=== PATIENT | female | born 1935 | race American Indian/Alaskan Native ===

== ENCOUNTER 2017-03-11 11:12 | Day surgery (SDC) | payer MEDICARE ==
[2017-03-11] MEDS ORDERED: NEOFRIN ONE (11:54)
[2017-03-11] MEDS ORDERED: MYDRIACYL ONE (11:54)
[2017-03-11] MEDS ORDERED: NEOFRIN OS ONE (12:05)
[2017-03-11] MEDS ORDERED: IOPIDINE OS ONE (12:05)
[2017-03-11] MEDS ORDERED: MYDRIACYL OS ONE (12:05)
[2017-03-11 13:10] VITALS: BP 158/80
== END 2017-03-11 11:13 | disposition home or self-care (01) ==
LOC: OR 11:12
PROVIDERS: ATTEND Specialist
DX: E11.36 Type 2 diabetes mellitus with diabetic cataract (principal); H26.492 Other secondary cataract, left eye; Z79.84 Long term (current) use of oral hypoglycemic drugs
CPT/HCPCS: 82962

== ENCOUNTER 2018-10-19 13:22 | Day surgery (SDC) | payer MEDICARE ==
[~2018-10-19 13:22] MED LIST: MARCAINE 0.25% INFILTRATI ONE; SODIUM BICARBONATE IV ONE; XYLOCAINE 2% INFILTRATI ONE
[2018-10-19] MEDS ORDERED: XYLOCAINE 1% 20 mL ONE (13:27)
[2018-10-19] MEDS ORDERED: MARCAINE 0.25% INFILTRATI ONE (13:27)
[2018-10-19 13:59] VITALS: BP 157/76
[2018-10-19] MEDS ORDERED: SODIUM BICARBONATE ONE (14:17)
--- NOTE | 2018-10-19 15:44 | Operative Report ---
Operative Report Operative Report: Date of procedure: 10/19/2018 Pre-operative diagnosis: Temporal arteritis, daily headaches with visual disturbance Post-operative diagnosis: Same Procedure name(s): Left temporal artery biopsy Surgeon: Marcelo Mancilla MD Resident Caregiver: None Anesthesia: Local EBL: Minimal Specimen(s): Left temporal artery Complications: None Findings: Normal-appearing temporal artery biopsies Procedure: With the head turned to the right the left preauricular area was prepped and draped using standard sterile technique. Skin was anesthetized using lidocaine and a vertical incision was made over the previously palpated temporal artery pulsation. The dissection was deepened sharply until the temporal artery was located and mobilized for a centimeter or 2. Proximal and distal ligation was performed along with ligation of the side branch and the vessel in between the 2 ligatures was then excised and sent for pathological assessment. Hemostasis was good. Surgery was blocked with Marcaine and closed in layers using 3-0 Vicryl subcutaneous interrupted 4-0 Monocryl subcuticular. The skin was sealed with Dermabond. Patient was turned to the supine position and then discharged home in stable condition having tolerated the procedure well.
--- NOTE | 2018-10-19 15:48 | Short Stay Summary ---
Short Stay Documentation Date of service: 10/19/18 Narrative H&P: Patient admitted to the minor procedure room for outpatient left temporal artery biopsy to rule out temporal arteritis - History H&P: obtained from office - Allergies and Medications Current Medications: Allergies No Known Allergies Allergy (Unverified 10/18/18 13:18) Home Medications Medication Instructions Recorded Confirmed Last Taken Type Furosemide [Lasix TAB] 40 mg PO QDAY 03/11/17 10/19/18 Unknown History Levothyroxine [Synthroid] 112 mcg PO QAM 03/11/17 10/19/18 Unknown History Metoprolol [Lopressor TAB] 50 mg PO DAILY 03/11/17 10/19/18 Unknown History Potassium Chloride [K-Dur] 20 meq PO QDAY 03/11/17 10/19/18 Unknown History Prednisone [predniSONE (Bam) ER 5 mg PO QDAY 03/11/17 10/19/18 Unknown History TAB] Rivaroxaban [Xarelto] 15 mg PO DAILY 03/11/17 10/19/18 Unknown History Simvastatin [Zocor TAB] 80 mg PO QHS 03/11/17 10/19/18 Unknown History azaTHIOprine [Imuran] 50 mg PO TID 03/11/17 10/19/18 Unknown History glipiZIDE [Glucotrol] 5 mg PO BID 03/11/17 10/19/18 Unknown History metFORMIN [Glucophage] 1,000 mg PO BID 03/11/17 10/19/18 Unknown History traMADol [Ultram] 50 mg PO Q4HR PRN 03/11/17 10/19/18 Unknown History - Brief post op/procedure progress note Date of procedure: 10/19/18 Procedure: Pre-operative diagnosis: Temporal arteritis, daily headaches with visual disturbance Post-operative diagnosis: Same Procedure name(s): Left temporal artery biopsy Surgeon: Marcelo Mancilla MD [employer] Specialist: None Anesthesia: Local EBL: Minimal Specimen(s): Left temporal artery Complications: None Findings: Normal-appearing temporal artery biopsies Procedure: With the head turned to the right the left preauricular area was prepped and draped using standard sterile technique. Skin was anesthetized using lidocaine and a vertical incision was made over the previously palpated temporal artery pulsation. The dissection was deepened sharply until the temporal artery was located and mobilized for a centimeter or 2. Proximal and distal ligation was performed along with ligation of the side branch and the vessel in between the 2 ligatures was then excised and sent for pathological assessment. Hemostasis was good. Surgery was blocked with Marcaine and closed in layers using 3-0 Vicryl subcutaneous interrupted 4-0 Monocryl subcuticular. The skin was sealed with Dermabond. Patient was turned to the supine position and then discharged home in stable condition having tolerated the procedure well. 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
== END 2018-10-19 15:45 | disposition home or self-care (01) ==
LOC: OR 13:22
PROVIDERS: ATTEND Surgery Vascular Surgery
DX: M31.6 Other giant cell arteritis (principal); G43.909 Migraine, unspecified, not intractable, without status migrainosus; G44.52 New daily persistent headache (NDPH); H54.62 Unqualified visual loss, left eye, normal vision right eye
CPT/HCPCS: 82962; 88305